=== PATIENT | male | born 1970 | race Caucasian/White ===

== ENCOUNTER 2019-02-02 10:15 | Emergency (ER) | payer OTHER ==
[~2019-02-02] VITALS: Ht 185.4 cm; Wt 136.1 kg
[~2019-02-02 10:15] MED LIST: BENAML20/5; BENAML20/5 PO; CYCL10 PO; FAMO20 PO; HYDACE5 PO; HYDCHL12.5; IBUP800 PO; LISI10; LISI10 PO; METO50ER PO; PARO20 PO; SPIHYD; SPIHYD PO; TRAZ50 PO; [UNRECOGNIZED DRUG - REMARK]
[2019-02-02] MEDS ORDERED: Lotrel 10-20 M1 EACH PO (11:05)
[2019-02-02] MEDS ORDERED: HYDR1TAB94 PO (11:52)
[2019-02-02] MEDS ORDERED: Naprosyn500 MG PO (11:52)
== END 2019-02-02 12:03 | disposition home or self-care (01) ==
LOC: ER 10:15
DX: M16.11 Unilateral primary osteoarthritis, right hip (principal); I10 Essential (primary) hypertension; F17.200 Nicotine dependence, unspecified, uncomplicated
CPT/HCPCS: 73502; 99283-25

== ENCOUNTER → 2020-08-05 | Outpatient (CLI) | payer OTHER ==
[~2020-08-05] MED LIST changes: +HYDR1TAB94 PO; +Lotrel 10-20 M1 EACH PO; +Naprosyn500 MG PO
[2020-08-05 14:11] LABS: Protein, Urine Quantitative 17.5 mg/dL (0.0-11.9)
[2020-08-05 14:14] LABS: Microalbumin, Urine Quant. 12.3 mg/L (0.000-20.000)
== END ==
LOC: LAB 11:59 → LAB SHORT 11:59
PROVIDERS: Internal Medicine Nephrology
DX: N18.3 Chronic kidney disease, stage 3 (moderate) (principal); D63.1 Anemia in chronic kidney disease; N25.81 Secondary hyperparathyroidism of renal origin; E55.9 Vitamin D deficiency, unspecified; E78.00 Pure hypercholesterolemia, unspecified; R76.9 Abnormal immunological finding in serum, unspecified; R94.5 Abnormal results of liver function studies; R94.6 Abnormal results of thyroid function studies
CPT/HCPCS: 81050; 82043; 82570; 84156